=== PATIENT | female | born 1995 | race Caucasian/White ===

== ENCOUNTER 2017-02-15 20:21 | Emergency (ER) | payer BC ==
[~2017-02-15] VITALS: Ht 167.6 cm; Wt 61.2 kg
[2017-02-15 21:03] VITALS: BP 123/67
== END 2017-02-15 21:52 | disposition home or self-care (01) ==
LOC: ER 20:39 → EDBD 20:39 → ER 21:52
DX: R09.89 Other specified symptoms and signs involving the circulatory and respiratory systems (principal)
CPT/HCPCS: 99283; A4606; Z7610